=== PATIENT | male | born 2000 | race African-American/Black ===

== ENCOUNTER 2022-05-30 14:54 | Emergency (ER) | payer OTHER ==
[~2022-05-30] VITALS: Ht 170.2 cm; Wt 84.2 kg
[2022-05-30 17:47] VITALS: BP 127/81
[2022-05-30] MEDS ORDERED: ANUS25SU PR (17:50)
[2022-05-30] MEDS ORDERED: COLA100C5 PO (17:50)
== END 2022-05-30 17:55 | disposition home or self-care (01) ==
LOC: M ED 14:54
DX: K62.5 Hemorrhage of anus and rectum (principal); K56.41 Fecal impaction; J45.909 Unspecified asthma, uncomplicated; F17.200 Nicotine dependence, unspecified, uncomplicated; Z79.83 Long term (current) use of bisphosphonates; Z79.899 Other long term (current) drug therapy